=== PATIENT | female | born 1990 | race Caucasian/White ===

== ENCOUNTER 2021-04-09 19:34 | Emergency (ER) | payer SELFPAY ==
[2021-04-09 19:47] VITALS: RESP 20
--- NOTE | 2021-04-09 20:50 | ED ---
General Adult HPI - General Chief complaint: Recheck/Abnormal Lab/Rx Stated complaint: Need covid test for [place] Source: patient Mode of arrival: ambulatory Limitations: no limitations - History of Present Illness Initial comments: 30-year-old female presents to the emergency department requesting Covid test. Patient is originally from [place] and came over to [place] today for the football game. She had a Covid test performed in [place] she [place] bridge. [place] the proper Covid test. She present today asymptomatic requesting Covid swab. The patient is Covid vaccinated. No alleviating, precipitating or modifying factors - Related Data Allergies Allergy/AdvReac Type Severity Reaction Status Date / Time latex Allergy Unknown Verified 04/09/21 19:47 Milk Containing Products Allergy Unknown Verified 04/09/21 19:47 [Dairy] Review of Systems ROS Statement: Those systems with pertinent positive or pertinent negative responses have been documented in the HPI. ROS Other: All systems not noted in ROS Statement are negative. Past Medical History Past Medical History: No Reported History History of Any Multi-Drug Resistant Organisms: None Reported Past Surgical History: No Surgical Hx Reported Past Psychological History: No Psychological Hx Reported Smoking Status: Never smoker Past Alcohol Use History: None Reported Past Drug Use History: None Reported General Exam Limitations: no limitations Course Vital Signs 04/09/21 04/09/21 19:42 21:13 Temperature 98.8 F 98.2 F Pulse Rate 88 86 Respiratory 20 20 Rate Blood Pressure 151/86 148/88 O2 Sat by Pulse 98 98 Oximetry Medical Decision Making - Medical Decision Making Upon arrival patient was swabbed for Covid which does come back negative. Patient given copies of results and discharged home - Lab Data Lab Results 04/09/21 Range/Units 19:47 Coronavirus (PCR) Not Detected (Not Detectd) Disposition Clinical Impression: Lab test negative for COVID-19 virus Disposition: HOME SELF-CARE Condition: Stable Instructions (If sedation given, give patient instructions): Normal Exam (ED) Additional Instructions: Your Covid test was negative Is patient prescribed a controlled substance at d/c from ED?: No Referrals: None,Stated [Primary Care Provider] - 1-2 days Time of Disposition: 20:50
[2021-04-09 21:13] VITALS: BP 148/88; PULSE 86; TEMP 98.2
== END 2021-04-09 21:12 | disposition home or self-care (01) ==
LOC: EC 19:34
DX: Z20.822 Contact with and (suspected) exposure to COVID-19 (principal)
CPT/HCPCS: 87635; 99282